=== PATIENT | male | born 1965 | race Caucasian/White ===

== ENCOUNTER 2020-10-05 17:07 | Emergency (ER) | payer MEDICAID ==
[~2020-10-05] VITALS: Ht 182.9 cm; Wt 87.4 kg
[~2020-10-05 17:07] MED LIST: CITA10TA8 PO; FLUO10CA13 PO; MIRT7.5T8 PO
[2020-10-05 17:13] VITALS: BP 127/97
== END 2020-10-05 17:34 | disposition home or self-care (01) ==
LOC: ED 17:30
DX: F32.9 Major depressive disorder, single episode, unspecified (principal); Z76.0 Encounter for issue of repeat prescription; F20.9 Schizophrenia, unspecified; F17.210 Nicotine dependence, cigarettes, uncomplicated
CPT/HCPCS: 99281

== ENCOUNTER 2020-10-24 07:52 | Emergency (ER) | payer MEDICAID ==
[~2020-10-24] VITALS: Ht 182.9 cm; Wt 99.5 kg
[2020-10-24 07:53] VITALS: BP 109/69
[2020-10-24] MEDS ORDERED: DEXAMETHASONE 4 MG TABLET ONE (08:16)
[2020-10-24] MEDS ORDERED: DEXAMETHASONE 4 MG/ML, 1ML PO ONE (08:30)
== END 2020-10-24 08:55 | disposition home or self-care (01) ==
LOC: ED 07:59
DX: J02.8 Acute pharyngitis due to other specified organisms (principal); B97.89 Other viral agents as the cause of diseases classified elsewhere; F17.210 Nicotine dependence, cigarettes, uncomplicated
CPT/HCPCS: 87081; 87147; 87880; 99283; 99406; J1100